=== PATIENT | male | born 1955 | race Caucasian/White ===

== ENCOUNTER → 2019-08-20 | Outpatient (CLI) | payer MEDICARE ==
--- NOTE | 2019-08-20 15:20 | CONS ---
CONSULTATION DATE OF SERVICE: 08/20/2019 A 64-year-old gentleman who has been evaluated in the [facility] for obstructive sleep apnea-hypopnea syndrome. HISTORY OF PRESENT ILLNESS/SLEEP WAKE EVALUATION: Patient has been diagnosed with obstructive sleep apnea about 20 years ago. He was started on treatment with CPAP at that time, but he was not able to tolerate treatment, did not like CPAP therapy. Presently, his sleep schedule from 9 pm until 5 am. No problems and falling asleep. No TV in bedroom. He usually sleeps on the side with loud snoring, episodes of stopped breathing during the sleep, multiple awakenings from sleep 5 times with nocturia, gasping for air, dry mouth, positive history of episodes of sleep talking. In the morning, patient wakes up tired, falling asleep during the day. [place] Sleepiness Scale significantly increased to 17. Patient has problems with memory, concentration, sexual dysfunction. PAST MEDICAL HISTORY: Positive for Parkinson disease, hypertension, diabetes, swelling of legs, hyperlipidemia, broken collarbone. PAST SURGICAL HISTORY: Surgery for broken collarbone in 2014. MEDICATIONS: Mirapex, Toprol, Glucophage, [place], Sinemet, baby aspirin. SOCIAL HISTORY: Positive for smoking for about 30 years, half pack a day and then quit about 6 years ago. Alcohol consumption occasional. FAMILY HISTORY: Hypertension, heart problems, hyperlipidemia, stroke, arthritis, skin cancer, pneumonia, snoring, bronchitis, acid reflux, diabetes. REVIEW OF SYSTEMS: Multiple awakenings from sleep, sleepiness during the day. PHYSICAL EXAM: gentleman without distress, BP 129/72, HR 60, RR 16, height 5, 10-1/2, weight 277.6, body mass index 39.1, temperature 98.2, oxygen saturation at room air 95%. OROPHARYNX: Extremely low position of soft palate. Mallampati 4, restriction of nasal breathing. Slightly asymmetric. NECK: Wide, 19-1/3 inches in circumference. ABDOMEN: Obese. EXTREMITIES: 1 to 2+ bilateral ankle edema. IMPRESSION: 1. Loud snoring, episodes of stopped breathing during the sleep, extremely low soft palate, Mallampati IV, wide neck 19-1/3 inches in circumference. 2. Sleepiness, [place] Sleepiness Scale 17, obstructive sleep apnea-hypopnea syndrome. 3. Obesity, body mass index 39.1. 4. History of Parkinson's disease, hypertension, diabetes mellitus, hyperlipidemia, swelling of the legs, status post surgery for a broken collarbone in 2015. PLAN: 1. Polysomnography for evaluation of patient's breathing during sleep. 2. CPAP/BiPAP titration if sleep study confirms obstructive sleep apnea-hypopnea syndrome. 3. Preferable position during sleep on the side. 4. No driving if patient feels any sleepiness. 5. I will see patient for follow up visit to explain results of testing and following plan. Thank you very much for referring this patient for consultation. Sincerely, Pedro Dumont MD, PhD, FAASM Diplomat of [employer] [facility] [facility] [place] MMODL / IJN: [id number] /
== END | disposition home or self-care (01) ==
LOC: SLEEP 13:14
PROVIDERS: ATTEND Internal Medicine
DX: R06.83 Snoring (principal); E66.9 Obesity, unspecified; Z68.39 Body mass index [BMI] 39.0-39.9, adult; Z86.69 Personal history of other diseases of the nervous system and sense organs; Z86.79 Personal history of other diseases of the circulatory system; Z86.39 Personal history of other endocrine, nutritional and metabolic disease; F17.210 Nicotine dependence, cigarettes, uncomplicated; Z98.890 Other specified postprocedural states; Z79.82 Long term (current) use of aspirin; Z79.84 Long term (current) use of oral hypoglycemic drugs; Z79.899 Other long term (current) drug therapy
CPT/HCPCS: 99211

== ENCOUNTER → 2020-03-31 | Outpatient (CLI) | payer MEDICARE ==
--- NOTE | 2020-03-31 12:04 | SFUN ---
SLEEP CENTER FOLLOW UP NOTE DATE OF SERVICE: 03/31/2020 A 64-year-old gentleman who has been followed in the Sleep Center for treatment of obstructive sleep apnea-hypopnea syndrome. Recently, the patient had polysomnogram which showed moderate obstructive sleep apnea with AHI 19.9. The patient had CPAP titration and received new CPAP unit. Today is his first visit after his recent new CPAP machine. [place] Sleepiness Scale is 13, which is also has been increased previously, but now it is less than before. During previous visit, [place] Sleepiness Scale was 17. I checked the patient CPAP unit, CPAP pressure is 12 cm of water. Usage is /30 nights and 19/30 nights for more than 4 hours. Leak is 6 L/minute. Apnea-hypopnea index is 4.3, which is in acceptable range. MEDICATIONS: Mirapex, Toprol, Glucophage, Sinemet. PHYSICAL EXAM: Patient in no distress, BP 103/63, HR 72, RR is 15, weight 254, temp 98.7, oxygen saturation at room air 95%. OROPHARYNX: Low position of soft palate. ABDOMEN: Slightly obese. NECK: Supple, no JVD. Thyroid is not palpable. LUNGS: Clear to percussion and to auscultation. Good air exchange. No wheezing or rhonchi. HEART: S1, S2 regular. No murmurs, gallops, or rubs. EXTREMITIES: No clubbing or cyanosis. RESPIRATORY SERVICES MANAGER: Awake, alert, and oriented X3. Cranial nerves 2 to 7 intact. There is no fasciculation or atrophy. noted. No focal deficits observed. IMPRESSION: 1. Obstructive sleep apnea-hypopnea syndrome. Patient demonstrated borderline compliance, benefitting from treatment. 2. Hypertension. 3. Diabetes mellitus. 4. History of Parkinson's disease. 5. Hyperlipidemia. 6. Status post collarbone fracture and surgical treatment in 2015. 7. Hyperlipidemia. 8. Obesity. 9. No significant periodic limb movements have been documented during diagnostic night and titration. PLAN: 1. Patient will continue to use PAP equipment every night for the whole night. 2. Sleep hygiene with regular time in bed for at least 7-1/2 to 8 hours. 3. Precautions related to driving. No driving if feeling sleepiness. 4. I will maintain all necessary prescription for PAP supplies including mask, tube, filters. 5. Watching weight. 6. No driving if feeling sleepiness. 7. Follow-up visit in 6 months or earlier if patient has any problems. 8. I increased CPAP pressure to 13 cm of water and following patient feeling decreased time of REM to 15 minutes from 30 minutes. Thank you very much for allowing me to participate in THE management of your patient. Sincerely, Pedro Dumont MD, PhD, FAASM Diplomat of [employer] [employer] [place] MMODL / IJN: [id number] /
== END | disposition home or self-care (01) ==
LOC: SLEEP 10:32
PROVIDERS: ATTEND Internal Medicine
DX: G47.33 Obstructive sleep apnea (adult) (pediatric) (principal); I10 Essential (primary) hypertension; E11.9 Type 2 diabetes mellitus without complications; E78.5 Hyperlipidemia, unspecified; E66.9 Obesity, unspecified; Z87.81 Personal history of (healed) traumatic fracture; Z87.898 Personal history of other specified conditions

== ENCOUNTER → 2022-11-05 | Outpatient (CLI) | payer MEDICARE ==
--- NOTE | 2022-11-06 08:40 | MR ---
EXAMINATION TYPE: MR Prostate wo/w con DATE OF EXAM: 11/05/2022 8:54 AM COMPARISON: None. CLINICAL INDICATION:Male, 67 years old with history of R97.20 ELEVATED PROSTATE SPECIFIC ANTIGEN; [facility] , TECHNIQUE: Multi-planar, multi-sequence imaging of the pelvis is performed prior to and following the uncomplicated administration of bolus intravenous gadolinium. CONTRAST: 11 Gadavist Interpretive Criteria: PI-RADS v2.1 SERUM PSA: 4.October 2.September SURGICAL PATHOLOGY: No data available. FINDINGS: Prostatic dimensions: 4.8 x 4.0 x 3.4 cm. "Bullet" Volume:42.73 (PSA density=0.11 ng/mL/mL) CENTRAL GLAND (Central and Transition Zones/CZ+TZ): Left anterior central base/mid gland area of high DWI /low ADC signal measuring at least 17 x 12 mm w ith low T2 signal. (PI-RADS 5) there is enhancement on arterial phase within this region. PERIPHERAL ZONE (PZ): No evidence of masslike abnormality, or localized perfusional hypervascularity, to further suggest a focus of clinically significant prostate cancer. (PI-RADS 2) SEMINAL VESICLES (SV): Symmetric and unremarkable. PERIPROSTATIC TISSUES: Unremarkable. LYMPH NODES: No enlarged pelvic lymph node. REMAINING PELVIS: Bladder wall is within normal limits given distention. No abnormal free or organized intrapelvic fluid collection. No pathologic bowel dilation or mural thickening. Bilateral fat-containing inguinal hernia. OSSEOUS STRUCTURES: No suspicious osseous abnormality. IMPRESSION: 1. PI-RADS 5 lesion left central mid gland and base measuring 17 x 12 mm. 2. No suspicious osseous lesion. No lymphadenopathy. No evidence of prostate adenocarcinoma involving the periprostatic tissues.
== END | disposition home or self-care (01) ==
LOC: RADMRIMAIN 07:43
PROVIDERS: ATTEND Urology
DX: R97.20 Elevated prostate specific antigen [PSA] (principal)
CPT/HCPCS: 72197; A9585